=== PATIENT | male | born 1950 | race Caucasian/White ===

== ENCOUNTER 2017-01-26 11:15 | Inpatient (IN) | payer OTHER ==
[2017-04-01] MEDS ORDERED: TRANEXAMIC ACID 3,000 MG/50 ML BAG IRR ONE (07:52)
[2017-04-01] MEDS ORDERED: TRANEXAMIC ACID 3,000 MG in NS 50 ML IRR ONE (10:00)
[2017-04-01] MEDS ORDERED: ROPIVACAINE 0.2% 80 MG, EPINEPHrine 0.2 MG, KETOROLAC TROMETHAMINE 30 MG in BAG 0 ML IU ONE (10:00)
[2017-04-01] MEDS ORDERED: LIDOCAINE 1% 2 ML INJ ONE (10:09)
[2017-04-01] MEDS ORDERED: ACETAMINOPHEN 325 MG TAB PO ONE (10:13)
[2017-04-01] MEDS ORDERED: FAMOTIDINE 20 MG TAB PO ONE (10:13)
[2017-04-01] MEDS ORDERED: DEXAMETHASONE 4 MG/ML VIAL IVP ONE (10:13)
[2017-04-01] MEDS ORDERED: ceFAZolin 2 GM/DEXTROSE 100 ML IV ONE (10:13)
[2017-04-01] MEDS ORDERED: LR 1,000 ML IV ONE (10:14)
[2017-04-01] MEDS ORDERED: LIDOCAINE 1% 2 ML INJ ID PRN (10:14)
--- NOTE | 2017-04-01 11:08 | PDHPUP ---
History & Physical Update H&P update statement: This history and physical update is based on an assessment of the patient which was completed after admission or registration (within 24 hours), but prior to the surgery/procedure. H&P update: H&P reviewed & patient examined, no change in patient's condition since H&P completed
[2017-04-01] MEDS ORDERED: PROPOFOL/EMULSION 500 MG/50 ML BOTTLE IV ONE (11:46)
[2017-04-01] MEDS ORDERED: MIDAZOLAM 2 MG/2 ML VIAL ONE (11:50)
[2017-04-01] MEDS ORDERED: LIDOCAINE 2% 100 MG/5 ML SYR ONE (11:51)
[2017-04-01] MEDS ORDERED: MIDAZOLAM 2 MG/2 ML VIAL IVP ONE (11:53)
--- NOTE | 2017-04-01 11:54 | PDANEPAE ---
ANE History of Present Illness right hip OA ANE Past Medical History - Cardiovascular History Hx Hypertension: Yes Hx Arrhythmias: No Hx Chest Pain: No Hx Coronary Artery / Peripheral Vascular Disease: No Hx CHF / Valvular Disease: No Hx Palpitations: No - Pulmonary History Hx COPD: No Hx Asthma/Reactive Airway Disease: No Hx Recent Upper Respiratory Infection: No Hx Oxygen in Use at Home: No Hx Sleep Apnea: No Sleep Apnea Screening Result - Last Documented: Negative - Neurologic History Hx Cerebrovascular Accident: No Hx Seizures: No Hx Dementia: No - Endocrine History Hx Diabetes: No - Renal History Hx Renal Disorders: Yes Renal History Comment: URETHALPLASTY - Liver History Hx Hepatic Disorders: No - Neurological & Psychiatric Hx Hx Neurological and Psychiatric Disorders: Yes Neurological / Psychiatric History Comment: DEPRESSION - Cancer History Hx Cancer: No - Congenital Disorder History Hx Congenital Disorders: No - GI History Hx Gastrointestinal Disorders: No - Other Health History Other Health History: GROVERS DISEASE - Surgical History Prior Surgeries: L RTC SCOPE X2. R RTC SCOPE. FX REPAIR L FOOT X2. R WRIST SCOPE. ANKLE REPAIR. FOOT SURG. ING HERNIA. URETHRAL DIL & REPAIR. URETTHRAL PLASTY ANE Review of Systems Review of Systems: - Exercise capacity METS (RN): 4 METS ANE Patient History - Allergies Allergies/Adverse Reactions: HAYFEVER Allergy (Mild, Uncoded 05/06/13 12:27) Other-Enter Comments - Home Medications Home Medications: Alfuzosin HCl [Uroxatral 10 MG (RX)] 10 mg PO DAILY 05/06/13 [Last Taken ] Herbals/Supplements -Info Only 3 tsp PO DAILY 05/06/13 [Last Taken 03/24/17] Lisinopril/Hydrochlorothiazide [Lisinopril-Hctz 20-25 mg Tab] 1 tab PO DAILY [Last Taken 03/31/17] Aspirin [Aspirin 81mg (*)] 81 mg PO DAILY 03/14/17 [Last Taken 03/24/17] [place]-3 Fatty Acids [Fish Oil 1000 mg (*)] 1,000 mg PO DAILY 03/14/17 [Last Taken 03/24/17] buPROPion SR [Wellbutrin 150mg SR (*)] 150 mg PO DAILY 03/14/17 [Last Taken 02/07] - NPO status NPO Since - Liquids (Date): 04/01/17 NPO Since - Liquids (Time): 09:00 NPO Since - Solids (Date): 03/31/17 NPO Since - Solids (Time): 21:00 - Anes Hx Anes Hx: no prior problems - Smoking Hx Smoking Status: Never smoked - Family Anes Hx Family Hx Anesthesia Complications: NEG ANE Labs/Vital Signs - Vital Signs Blood Pressure: 137/78 Heart Rate: 64 Respiratory Rate: 18 O2 Sat (%): 97 Height: 177.8 cm Weight: 77.111 kg ANE Physical Exam - Airway Neck exam: FROM Mallampati Score: Class 1 Mouth exam: normal dental/mouth exam - Pulmonary Pulmonary: no respiratory distress - Cardiovascular Cardiovascular: regular rate and rhythym - ASA Status ASA Status: II ANE Anesthesia Plan Anesthesia Plan: spinal
[2017-04-01] MEDS ORDERED: LR 500 ML IV PRN (12:58)
[2017-04-01] MEDS ORDERED: fentaNYL 100 MCG/2 ML INJ IVP PRN (12:58)
[2017-04-01] MEDS ORDERED: ONDANSETRON 4 MG/2 ML VIAL IVP PRN ×2 (12:58→13:19)
[2017-04-01] MEDS ORDERED: NALOXONE HCL 0.4 MG/ML INJ IVP PRN (12:58)
[2017-04-01] MEDS ORDERED: ALBUTEROL 3 ML DEYVIAL IH PRN (12:58)
[2017-04-01] MEDS ORDERED: HYDROmorphONE/DILAUDID 1 MG/ML INJ IVP PRN (12:58)
[2017-04-01] MEDS ORDERED: ACETAMINOPHEN 500 MG TAB PO PRN (12:58)
--- NOTE | 2017-04-01 13:18 | POSTOPPROG ---
Post Op Note Date of Operation: 04/01/17 Surgeon: Michelle Del Valle Candy Butcher: nohelia webster Anesthesiologist: merari Anesthesia: IV Sedation, Spinal Pre-op Diagnosis: R hip OA Post-op Diagnosis: R hip OA Indication: failed conservative therapies Procedure: R NATACHA Inf/Abcess present in the surg proc area at time of surgery?: No EBL: Minimal
[2017-04-01] MEDS ORDERED: BISACODYL 10 MG SUPP PR PRN (13:19)
[2017-04-01] MEDS ORDERED: ONDANSETRON DISINTEGRATING 4 MG TAB PO PRN (13:19)
[2017-04-01] MEDS ORDERED: POLYETHYLENE GLYCOL 3350 17 GM PKT PO PRN (13:19)
[2017-04-01] MEDS ORDERED: METOCLOPRAMIDE 10 MG/2 ML VIAL IVP PRN (13:19)
[2017-04-01] MEDS ORDERED: MAGNESIUM HYDROXIDE 30 ML UDCUP PO PRN (13:19)
[2017-04-01] MEDS ORDERED: PROMETHAZINE HCL 25 MG/ML INJ IVP PRN (13:19)
[2017-04-01] MEDS ORDERED: LACTULOSE 20 GM/30 ML UDCUP PO PRN (13:19)
[2017-04-01] MEDS ORDERED: DIPHENOXYLATE/ATROPINE LOMOTIL 1 TAB PO PRN (13:19)
[2017-04-01] MEDS ORDERED: CYCLOBENZAPRINE 10 MG TAB PO PRN (13:19)
[2017-04-01] MEDS ORDERED: diphenhydrAMINE 25 MG CAP PO PRN (13:19)
[2017-04-01] MEDS ORDERED: TEMAZEPAM 15 MG CAP PO PRN (13:19)
[2017-04-01] MEDS ORDERED: PROMETHAZINE HCL 25 MG SUPPR PR PRN (13:19)
--- NOTE | 2017-04-01 13:26 | POSTANESTH ---
Post Anesthetic Evaluation Cardiovascular Status: Normal, Stable Respiratory Status: Normal, Stable Level of Consciousness/Mental Status: Can Participate in Eval Pain Control: Adequate, Prn Tx Ordered Nausea/Vomiting Control: Adequate, Prn Tx Ordered Complications Possibly Related to Anesthesia: None Noted
[2017-04-01] MEDS: ACETAMINOPHEN 325 MG TAB PO SCH ×2 (17:04→23:53)
[2017-04-01] MEDS: oxyCODONE IR 5 MG TAB PO PRN (17:36)
[2017-04-01] MEDS: LR 1,000 ML IV SCH (18:16)
[2017-04-01] MEDS: SENNOSIDES/DOCUSATE SODIUM TAB PO SCH (20:13)
[2017-04-01] MEDS: ceFAZolin 2 GM/DEXTROSE 100 ML IV SCH (20:13)
[2017-04-01] MEDS: FAMOTIDINE 20 MG TAB PO SCH (20:14)
[2017-04-01] MEDS: ASPIRIN 325 MG TAB PO SCH (20:28)
[2017-04-02] MEDS: ceFAZolin 2 GM/DEXTROSE 100 ML IV SCH (03:39)
[2017-04-02] MEDS: LR 1,000 ML IV SCH (03:40)
[2017-04-02] MEDS: ACETAMINOPHEN 325 MG TAB PO SCH ×2 (05:34→11:59)
[2017-04-02 05:49] LABS: HEMATOCRIT 33.6 % (40.0-51.0)
[2017-04-02 07:27] VITALS: O2SAT 94
[2017-04-02] MEDS: oxyCODONE IR 5 MG TAB PO PRN (08:55)
[2017-04-02] MEDS: ASPIRIN 325 MG TAB PO SCH (08:56)
[2017-04-02] MEDS: FAMOTIDINE 20 MG TAB PO SCH (08:56)
[2017-04-02] MEDS: SENNOSIDES/DOCUSATE SODIUM TAB PO SCH (08:57)
[2017-04-02] MEDS ORDERED: buPROPion SR 150 MG TAB PO SCH (09:00)
[2017-04-02] MEDS ORDERED: ALFUZOSIN HCL 10 MG PO SCH (09:00)
[2017-04-02] MEDS ORDERED: TAMSULOSIN HCL 0.4 MG CAP PO SCH (09:00)
[2017-04-02] MEDS ORDERED: LISINOPRIL/HCTZ 10/12.5 MG 1 EA TAB PO SCH (09:00)
[2017-04-02] MEDS ORDERED: HYDROCHLOROTHIAZIDE PO SCH (09:00)
[2017-04-02] MEDS ORDERED: LISINOPRIL PO SCH (09:00)
[2017-04-02 12:16] VITALS: BP 116/69; PULSE 63; RESP 14; TEMP 97.9
--- NOTE | 2017-04-02 12:20 | SOAPPROG ---
SOAP Progress Note Assessment/Plan: Assessment: Patient is doing well POD 1 s/p R NATACHA Pain management: pain is well controlled on oral pain meds. VTE ppx: recommend aspirin daily for 3 weeks, cont LANIE and SCDs Anemia: level is expected initially postop. Asymptomatic. Continue to monitor D/c planning: d/c to home today pending release from PT Plan: 04/02/17 12:20 Objective: Vital Signs Temp Pulse Resp BP Pulse Ox 36.6 C 63 14 116/69 94 04/02/17 12:16 04/02/17 12:16 04/02/17 12:16 04/02/17 12:16 04/02/17 12:16 Microbiology 04/01/17 12:34 Gram Stain - Final Hip - Aspirate 04/01/17 12:34 Gram Stain - Final Hip - Eswab Laboratory Results 04/02/17 05:36 04/01/17 04/02/17 04/03/17 05:59 05:59 05:59 Intake Total 5409 Output Total 1100 300 Balance 4309 -300 ICD10 Worksheet Patient Problems: Problems Problem Status Onset Benign hypertension Acute Wound infection Acute
--- NOTE | 2017-04-03 17:06 | ASDISCHSUM ---
Discharge Information Plan Status:Home with No Needs Medically Cleared to Leave:04/02/2017 Discharge Date:04/02/2017 02:22 PM CM D/C Disposition:Home, Routine, Self-Care ADT D/C Disposition:Home, Routine, Self-Care Projected Discharge Date:04/02/2017 12:00 AM Transportation at D/C:Family Discharge Delay Reason: Follow-Up Date:04/02/2017 12:00 AM Discharge Slot:2 - 12:01 pm - 18:00 pm Final Diagnosis:R NATACHA Placement Information Patient Contact Information Contact Name:HANK Relationship: Address:[address] City:[place] Alternate Phone: [facility]/Zip Code:[place] [address] Email: Financial Information Financial Class:MATHEW Primary Plan Desc:MEDICARE INPATIENT Primary Plan Number:[id number] Secondary Plan Desc:[employer]IG[employer] Secondary Plan Number:[id number] Assessment Information Intervention Information
--- NOTE | 2017-04-03 17:08 | ASMTCMCOM ---
CM Note CM Note Notes: Reviewed chart, spoke w/ MICHELLE Michael. Pt to discharge home independently w/ family support and no identified needs. PT rec outpt rehab and use of front wheeled walker. No OT recs. CM avail for any further issues or concerns. Date Signed: 04/02/2017 03:27 PM Electronically Signed By:Jeanine Crouch
--- NOTE | 2017-04-04 09:24 | GOP ---
[f rep st] OPERATIVE REPORT DATE OF OPERATION: 04/01/2017 SURGEON: Ladonna Del Valle MD HEAT TREAT PULLER: KEYANA Power ANESTHESIA: Spinal. PREOPERATIVE DIAGNOSIS: Right hip osteoarthritis. POSTOPERATIVE DIAGNOSIS: Right hip osteoarthritis. PROCEDURE PERFORMED: Right total hip arthroplasty. FINDINGS: ESTIMATED BLOOD LOSS: 200 cc. IMPLANTS: Accolade II, size 7 at 127. The acetabular component is a 56 mm Tritanium. The liner is a Trident X3, 36 mm. The head is a Biolox Delta, 36 mm , -5. INDICATIONS: The patient has progressively worsening arthritis of the hip which has failed medical management. The patient understands the treatment options including continued non-operative care and has selected surgical intervention. The patient has decided to undergo total hip arthroplasty via the direct anterior approach, understanding the risks of the procedure including , but not limited to, neurovascular injury, infection, persistent pain, component wear and loosening, deep venous thrombosis, pulmonary embolism, limb length inequality, hip instability (including dislocation), and intra-operative fractures. DESCRIPTION OF PROCEDURE: After proper identification of the patient including verification and marking the surgical site, the patient was brought to the operating room and placed in the supine position. All bony prominences were well padded. Anesthesia was induced without complication and intravenous prophylactic antibiotics were administered prior to skin incision. The operative leg was placed in the Trumpf Arch table extension and the well leg in a Yellofin leg bridges. The patient was prepped and draped in the usual sterile fashion. The C-arm was draped for intra-operative fluoroscopy to check acetabular position, femoral component position including leg length and femoral offset. Attention was then drawn to surgical exposure of the hip. An incision was made with a #10 Bard Alfredo blade starting 3 cm lateral and 3 cm distal to the anterior superior iliac spine measuring 8-10 cm and coursing distally toward the greater trochanter. The skin and subcutaneous tissues were divided sharply down to the fascia yamil. The fascia yamil was incised in line with the skin incision exposing the underlying tensor fascia yamil muscle. The muscle was bluntly elevated from the fascia and the first extracapsular Cobra retractor was placed laterally at the junction of the superior femoral neck and greater trochanter. The lateral femoral circumflex vessels were identified, cauterized , and divided with the Aquamantys bipolar cautery. The deep investing fascia of the TFL was divided to allow proper mobilization of the muscle preventing damage during the retraction. The reflected head of the rectus femoris muscle was elevated off the anterior hip capsule and a medial Cobra retractor was placed just proximal to the lesser trochanter. The anterior capsulotomy was made sharply from the superolateral acetabulum to the saddle junction of the superior femoral neck and greater trochanter, then coursing inferomedial towards the lesser trochanter. The retractors were then placed in the intracapsular position for femoral neck osteotomy. Corresponding to pre-operative templating, the osteotomy was made with the oscillating saw carefully protecting the greater trochanter and soft tissues. The femoral head was removed from the acetabulum with a corkscrew and confirmed to be severely arthritic with exposed bone, deformity and osteophytes. Similar findings were confirmed in the acetabulum. The Arch table extension was then placed in 40 degrees external rotation. Attention was then drawn to the acetabular preparation. After placement of the anterior and posterior Cobra retractors outside the labrum and intracapsular, the circumferential labrum was removed sharply. The foveal contents were then removed and hemostasis obtained with cautery. The first reamer selected was sized using the removed femoral head. Reaming began with medialization and then commenced in 2 mm increments at 45 degrees of abduction and 15 degrees of anteversion using fluoroscopic navigation. Reaming ceased 1 mm less than the definitive acetabular component and corresponded to the pre-operative templating. The final acetabular component was inserted using fluoroscopy to achieve proper orientation yielding excellent purchase and stability in the acetabulum. The final acetabular liner was then placed and its seating confirmed. Attention was then turned to the femur. The Arch table extension was placed in extension and adduction, delivering the osteotomized femoral neck into the wound. A 2-pronged femoral elevator was placed at the calcar and another at the tip of the greater trochanter. The posterolateral capsule was released with cautery allowing mobilization of the femur lateral and anterior for preparation. The external rotators were visualized and preserved. A curette and rongeur were used to open the starting point for broaching. Serial broaching started with the #0 broach and ended with the broach that exhibited excellent fit in the proximal femur. A change in pitch during mallet strikes was accompanied by the inability to advance the broach any further. The trial reduction was performed and fluoroscopic navigation was utilized to check limb length. Adjustments were made to equalize limb length accordingly. After the final trials were accepted they were removed and the wound was copiously lavaged. The femoral component was seated to the same depth as the final broach and the femoral head was impacted onto the clean trunnion. The hip was then reduced for the final time and once more fluoroscopy was used to check that limb length equality was achieved. The wound was irrigated and closed in layers, the fascia yamil with 2-0 Quill, the subcutaneous tissue with 2-0 Quill, and the skin with Dermabond. Sterile dressings were applied. Final sharps and sponge counts were accurate. The patient was then transferred to a hospital bed and brought to the recovery room in stable condition. /[id number]/MODL MTDD
--- NOTE | 2017-04-07 03:59 | GDS ---
[f rep st] DISCHARGE SUMMARY ADMISSION DIAGNOSIS: Right hip osteoarthritis. DISCHARGE DIAGNOSIS: Right hip osteoarthritis. PROCEDURE: Right total hip arthroplasty. VTE PROPHYLAXIS: Full-strength aspirin x21 days. BRIEF DESCRIPTION OF HOSPITAL STAY: Patient was admitted for an elective joint arthroplasty. The pa tient tolerated the procedure well and has passed physical therapy. The patient was given appropriat e antibiotic prophylaxis and venous thromboembolism prophylaxis. The patient's pain was well control led on oral pain medication, patient was holding down food, and had urinated. Decision was made to d ischarge the patient. The patient was given post-operative prescriptions pre-operatively. PLAN: Please follow up with Dr. Del Valle as scheduled in 3 weeks. /[id number]/MODL
== END 2017-04-02 14:22 | disposition home or self-care (01) | DRG 470 ==
LOC: F3N 04-01 09:40
PROVIDERS: ADMIT Orthopaedic Surgery; ATTEND Orthopaedic Surgery
PROC: 0SR904Z Replacement of Right Hip Joint with Ceramic on Polyethylene Synthetic Substitute, Open Approach (ICD-10-PCS; principal; 2017-04-01 10:15)
DX: M17.31 Unilateral post-traumatic osteoarthritis, right knee (principal)
CPT/HCPCS: 97110-GP; 97116-GP; 97161-GP; 97165-GO; G8978-GP-CI; G8979-GP-CI; G8980-GP-CI; G8987-GO-CI; G8988-GO-CI; G8989-GO-CI; J0171; J0690; J1100; J1885; J2001; J2250; J2704; J2795

== ENCOUNTER → 2017-02-16 | Outpatient (CLI) | payer OTHER | LOC: FIMAGING 11:44 | PROVIDERS: ATTEND Physical Medicine & Rehabilitation | DX: M16.11 Unilateral primary osteoarthritis, right hip (principal); M24.151 Other articular cartilage disorders, right hip ==

== ENCOUNTER 2017-04-17 19:04 | Observation (INO) | payer OTHER ==
--- NOTE | 2017-04-17 19:12 | EDPHY ---
H & P HPI/ROS: CHIEF COMPLAINT: Right hip pain, post hip surgery 15 days HISTORY OF PRESENT ILLNESS: The patient is a 67 y/o male arriving via EMS after he developed hip pain during physical therapy today, 5 hours ago. He is 15 days post-op from a full right hip surgery with Dr. Del Valle. A small hematoma initially formed after he was doing home exercises. He has increased pain on movement with associated muscle spasms. He also has pain on the top of his right this. Muscle relaxants did not alleviate his symptoms. Denies weakness, numbness, fever or other pertinent symptoms. REVIEW OF SYSTEMS: Aside from elements discussed in the HPI, a comprehensive 10-point review of systems was reviewed and is negative. Past Medical/Surgical History: Hypertension, 15 days post-op right hip replacement. Social History: Family at bedside, lives in [place], retired Physical Exam: General Appearance: Alert, no distress Eyes: Pupils equal and round, no conjunctival pallor or injection ENT, Mouth: Mucous membranes moist Neck: Normal inspection Respiratory: Lungs are clear to auscultation Cardiovascular: Regular rate and rhythm Gastrointestinal: Abdomen is soft and non- tender Neurological: A&O, nonfocal, normal gait Skin: Warm and dry, no rash Extremities: Right anterior thigh healing incision, mild swelling over lateral aspect of right thigh, tenderness along lateral aspect of right thigh, small amount of ecchymosis on right anterior thigh and right groin Psychiatric: Mood and affect normal Constitutional: Initial Vital Signs Temperature (C) 36.8 C 04/17/17 19:10 Blood Pressure 138/81 H 04/17/17 19:10 O2 Delivery Mode Room Air Allergies/Adverse Reactions: HAYFEVER Allergy (Mild, Uncoded 05/06/13 12:27) Other-Enter Comments Home Medications: Medication Instructions Recorded Alfuzosin HCl [Uroxatral 10 MG] 10 mg PO DAILY 05/06/13 Lisinopril/Hydrochlorothiazide 1 tab PO DAILY 05/06/13 [Lisinopril-Hctz 20-25 mg Tab] [place]-3 Fatty Acids [Fish Oil 1000 1,000 mg PO DAILY 03/14/17 mg (*)] buPROPion SR [Wellbutrin 150mg SR 150 mg PO DAILY 03/14/17 (*)] Aspirin [Aspirin 325 mg (*)] 325 mg PO DAILY tab 04/02/17 Cyclobenzaprine [Flexeril 10 MG 10 mg PO Q8HRS PRN tab 04/02/17 (*)] Sennosides/Docusate Sodium 1 - 2 tab PO BID tab 04/02/17 [Senokot-S] celeCOXIB [Celebrex (*)] 200 mg PO DAILY cap 04/02/17 oxyCODONE/APAP 5/325 [Percocet 1 - 2 tab PO Q4HRS PRN #30 tab 04/18/17 5/325 (*)] Medical Decision Making - Diagnostics Imaging Results: Hip X-Ray 04/17/17 19:20 Impression: Negative. Well-positioned right total hip arthroplasty. Imaging: I viewed and interpreted images myself ED Course/Re-evaluation: This pt presents with a postoperative hematoma. Improved after ice applied at home, but has significant pain. Direct pressure applied by ED staff. 1948: Patient requests analgesics for pain relief. 1 tab PO Percocet administered. 2019: Consulted with Dr. Forde, orthopedic surgeon. He will come in to see the pt. Right hip x-ray is negative for acute injury. This patient was seen by Dr. Hansen in the emergency department and will be admitted by Dr. Forde for pain control. Ultrasound of the right thigh ordered to rule out hematoma. Differential Diagnosis: Differential diagnosis includes though it is not limited to fracture, dislocation, tendon disruption, neurovascular compromise. - Data Points Laboratory Results: Laboratory Results 04/17/17 19:20 04/17/17 19:20 Medications Given: Discontinued Medications Aspirin (Aspirin) 325 mg PO DAILY BRE Stop: 10/15/17 08:59 Last Admin: 04/18/17 09:04 Dose: 325 mg Bupropion HCl (Wellbutrin Sr) 150 mg PO DAILY BRE Stop: 10/15/17 08:59 Last Admin: 04/18/17 09:04 Dose: 150 mg Celecoxib (Celebrex) 200 mg PO DAILY BRE Stop: 10/15/17 08:59 Last Admin: 04/18/17 09:03 Dose: 200 mg Lisinopril/HCTZ (Zestoretic) 2 ea PO DAILY BRE Stop: 10/15/17 08:59 Last Admin: 04/18/17 09:03 Dose: 2 ea Miscellaneous Medication (Alfuzosin Hcl [Uroxatral 10 Mg]) 10 mg PO DAILY BRE Stop: 10/15/17 08:59 Last Admin: 04/18/17 09:05 Dose: Not Given Jnxzc-5-Nqkz Ethyl Esters (Fish Oil) 1,000 mg PO DAILY BRE Stop: 10/15/17 08:59 Last Admin: 04/18/17 09:09 Dose: Not Given Oxycodone/Acetaminophen (Percocet 5/325) 1 tab PO EDNOW ONE Stop: 04/17/17 19:50 Last Admin: 04/17/17 19:52 Dose: 1 tab Oxycodone/Acetaminophen (Percocet 5/325) 1 - 2 tab PO Q4HRS PRN PRN Reason: Pain, Severe Able to Take PO Stop: 04/27/17 21:43 Last Admin: 04/18/17 15:26 Dose: 1 tab Senna/Docusate Sodium (Senokot-S) 1 - 2 tab PO BID BRE Stop: 10/15/17 08:59 Last Admin: 04/18/17 09:03 Dose: 2 tab Departure - Departure Disposition: Home, Routine, Self-Care Clinical Impression: Hematoma of right hip Qualifiers: Encounter type: initial encounter Qualified Code(s): S70.01XA - Contusion of right hip, initial encounter Condition: Good Report Scribed for: Lolis Hardy Report Scribed by: Jo Ann Kaur Date of Report: 04/17/17 Time of Report: 19:07 Physician Review and Approval Statement: 04/17/17 19:07 Portions of this note were transcribed by a back office medical assistant. I personally performed a history, physical exam, medical decision making, and confirmed accuracy of information the transcribed note.
[2017-04-17] MEDS ORDERED: OXYCODONE/APAP 5/325 TAB PO ONE (19:49)
[2017-04-17 20:22] LABS: % IMMATURE GRANULYOCYTES 0.6 % (0.0-1.1); ABSOLUTE IMMATURE GRANULOCYTES 0.05 10^3/uL (0.00-0.10); ADD DIFF? NO; ADD MORPH? NO; ADD SCAN? NO; ATYPICAL LYMPHOCYTE FLAG 0 (0-99); FRAGMENT RBC FLAG 0 (0-99); HEMATOCRIT 39.7 % (40.0-51.0); HEMOGLOBIN 13.9 g/dL (13.7-17.5); LEFT SHIFT FLG 0 (0-99); LIPEMIA HEMOLYSIS FLAG 90 (0-99); MEAN CELL HEMOGLOBIN 33.7 pg (27.9-34.1); MEAN CELL VOLUME 96.1 fL (81.5-99.8); MEAN PLATELET VOLUME 9.1 fL (8.7-11.7); PLATELET CLUMPS FLAG 0 (0-99); PLATELET COUNT 338 10^3/uL (150-400); RED BLOOD CELL COUNT 4.13 10^6/uL (4.40-6.38); RED CELL DISTRIBUTION WIDTH 13.4 % (11.5-15.2)
[2017-04-17 21:39] LABS: C-REACTIVE PROTEIN < 5.0 mg/L (<10.0)
[2017-04-17] MEDS ORDERED: ONDANSETRON DISINTEGRATING 4 MG TAB PO PRN (21:44)
[2017-04-17] MEDS ORDERED: morphINE PCA 30 MG/30 ML PCA IV PRN (21:44)
[2017-04-17] MEDS ORDERED: ONDANSETRON 4 MG/2 ML VIAL IVP PRN (21:44)
[2017-04-17] MEDS ORDERED: NALOXONE HCL 0.4 MG/ML INJ IVP PRN (21:44)
[2017-04-17 21:48] LABS: ANION GAP 10 mEq/L (8-16); CALCIUM 9.7 mg/dL (8.5-10.4); CARBON DIOXIDE 27 mEq/l (22-31); CHLORIDE 93 mEq/L (97-110); GLOMERULAR FILTRATION RATE > 60; GLUCOSE 90 mg/dL (70-100); POTASSIUM 4.4 mEq/L (3.5-5.2); SODIUM 130 mEq/L (134-144)
[2017-04-17 21:49] LABS: SEDIMENTATION RATE 9 MM/HR (0-20)
--- NOTE | 2017-04-17 22:27 | GCON ---
[f rep st] CONSULTATION CONSULTATION/ADMISSION HISTORY AND PHYSICAL CHIEF COMPLAINT: Right hip pain. HISTORY OF PRESENT ILLNESS: The patient is a 67-year-old who underwent an uncomplicated right total hip arthroplasty three weeks ago. The patient was doing extremely well for the first week and began developing some increasing pain. He noted a "lump" adjacent to the skin earlier today with inability to weightbear. Based on his difficulty ambulating, he presented to the emergency room. PHYSICAL EXAMINATION: There is a moderate amount of "typical" swelling in the right thigh with some subcutaneous ecchymosis along the anterior thigh. His anterior incision is sealed without any eviden ce of breakdown or drainage. His distal neurovascular exam is intact. He has diffuse tenderness alessio ng the anterior thigh. This reproduces pain. Distal neurovascular exam is intact. PAST MEDICAL HISTORY: Positive for hypertension. MEDICATIONS: Medicines include Percocet postoperatively plus alfuzosin, lisinopril, Celebrex, supple ments and Wellbutrin. SOCIAL HISTORY: Negative for tobacco use. ASSESSMENT: Probable hematoma or seroma, status post right total hip arthroplasty. PLAN: The patient will be admitted for overnight observation for pain control. /[id number]/MODL
[2017-04-18] MEDS: OXYCODONE/APAP 5/325 TAB PO PRN ×3 (00:10→15:26)
[2017-04-18] MEDS ORDERED: CYCLOBENZAPRINE 10 MG TAB PO PRN (08:26)
[2017-04-18] MEDS ORDERED: LISINOPRIL/HCTZ 10/12.5 MG 1 EA TAB PO SCH (09:00)
[2017-04-18] MEDS ORDERED: HYDROCHLOROTHIAZIDE PO SCH (09:00)
[2017-04-18] MEDS ORDERED: LISINOPRIL PO SCH (09:00)
[2017-04-18] MEDS ORDERED: [UNRECOGNIZED DRUG - OTHER] PO SCH (09:00)
[2017-04-18] MEDS ORDERED: buPROPion SR 150 MG TAB PO SCH (09:00)
[2017-04-18] MEDS ORDERED: ASPIRIN 325 MG TAB PO SCH (09:00)
[2017-04-18] MEDS ORDERED: ALFUZOSIN HCL 10 MG PO SCH ×2 (09:00)
[2017-04-18] MEDS ORDERED: SENNOSIDES/DOCUSATE SODIUM TAB PO SCH (09:00)
[2017-04-18] MEDS ORDERED: OMEGA-3 FATTY ACIDS 1,000 MG CAP PO SCH (09:00)
--- NOTE | 2017-04-18 14:57 | ASMTCMCOM ---
CM Note CM Note Notes: Pt came to ED for R hip pain, has hematoma. PT rec home, pt already has outpatient PT set up. Pt is 15 day post op R hip surgery. No CM d/c needs identified at this time. Anticipate pt will d/c when medically stable. CM available for changes/needs. Date Signed: 04/18/2017 02:56 PM Electronically Signed By:KEN Hannah
[2017-04-18 16:09] VITALS: BP 111/67; PULSE 83; RESP 16; TEMP 97.5; O2SAT 94
[2017-04-19] MEDS ORDERED: ALFUZOSIN HCL 10 MG PO SCH (09:00)
--- NOTE | 2017-04-19 10:51 | ASDISCHSUM ---
Discharge Information Plan Status:Home with No Needs Medically Cleared to Leave: Discharge Date:04/18/2017 05:49 PM CM D/C Disposition:Home, Routine, Self-Care ADT D/C Disposition:Home, Routine, Self-Care Projected Discharge Date:04/18/2017 05:49 PM Transportation at D/C: Discharge Delay Reason: Follow-Up Date:04/18/2017 05:49 PM Discharge Slot: Final Diagnosis: Placement Information Patient Contact Information Contact Name:HANK Relationship: Address:[address] City:[facility] Phone: [facility]/Zip Code:[place] [address] Email: Financial Information Financial Class: Primary Plan Desc:MEDICARE OUTPATIENT Primary Plan Number:[id number] Secondary Plan Desc:[employer]US NAVIGATE Secondary Plan Number:[id number] Assessment Information [facility] CM Progress Note CM Note CM Note Notes: Pt came to ED for R hip pain, has hematoma. PT rec home, pt already has outpatient PT set up. Pt is 15 day post op R hip surgery. No CM d/c needs identified at this time. Anticipate pt will d/c when medically stable. CM available for changes/needs. Date Signed: 04/18/2017 02:56 PM Electronically Signed By:KEN Hannah Intervention Information Intervention Type:*NAVYA-Signed Date of Service:04/18/2017 09:42 AM Patient Type:Observation Staff Member:Lissett Harrington Hours: Discipline: Severity: Comment:
== END 2017-04-18 17:49 | disposition home or self-care (01) ==
LOC: EDUNIT# → F3N 22:21
PROVIDERS: ADMIT Orthopaedic Surgery Foot and Ankle Surgery; ATTEND Orthopaedic Surgery Foot and Ankle Surgery
DX: L76.32 Postprocedural hematoma of skin and subcutaneous tissue following other procedure (principal); I10 Essential (primary) hypertension; Z96.641 Presence of right artificial hip joint
CPT/HCPCS: 73502; 76882; 97162; G0378; G8978; G8979